=== PATIENT | female | born 2000 | race African-American/Black ===

== ENCOUNTER 2024-05-22 08:13 | Outpatient (REF) | payer OTHER, SELFPAY ==
[2024-05-22 11:45] LABS: HCG Quantitative 1114 mIU/mL
== END 2024-05-22 08:14 | disposition home or self-care (01) ==
LOC: HO.HMGCLDS 08:13
PROVIDERS: Visit Provider Registered Nurse
DX: N91.2 Amenorrhea, unspecified (principal)
CPT/HCPCS: 36415; 84702